=== PATIENT | female | born 1965 | race Caucasian/White ===

== ENCOUNTER → 2017-05-08 | Outpatient (CLI) | payer OTHER ==
[~2017-05-08] MED LIST: ALBU6.7H; ASPI-515; ATOR20TA; ESTR1TAB17; FLUO20CA19; FLUT16SP2; GABA300C; GLIP-33; METF10002; OMEP20CA9; POTA10CA
== END | disposition home or self-care (01) ==
LOC: RAD 11:45
PROVIDERS: ATTEND Internal Medicine
DX: M17.11 Unilateral primary osteoarthritis, right knee (principal); M24.661 Ankylosis, right knee

== ENCOUNTER 2017-05-10 15:13 | Emergency (ER) | payer OTHER ==
[~2017-05-10] VITALS: Ht 152.4 cm; Wt 67.3 kg
[2017-05-10] MEDS ORDERED: ONDANSETRON 2MG/ML, 2ML IVPush ONE (16:00)
[2017-05-10] MEDS ORDERED: SODIUM CHLORIDE FLUSH 10ML SYR IVF ONE (16:00)
[2017-05-10] MEDS ORDERED: SODIUM CHLORIDE 0.9% 1,000ML IVBOLUS ONE ×2 (16:00→17:00)
[2017-05-10 16:16] LABS: BLOOD UREA NITROGEN 13 mg/dL (7-18)
[2017-05-10 16:20] LABS: ASPARTATE AMINO TRANSFERASE 63 U/L (15-37)
[2017-05-10] MEDS ORDERED: ONDANSETRON 2MG/ML, 2ML ONE (17:01)
[2017-05-10 18:14] VITALS: BP 104/68
== END 2017-05-10 18:24 | disposition home or self-care (01) ==
LOC: ED 18:21
DX: E11.65 Type 2 diabetes mellitus with hyperglycemia (principal)
CPT/HCPCS: 36415; 80053; 81001; 82010; 82962; 85025; 87077; 87086; 87106; 87186; 93005; 96361; 96374; 99285; J2405; J7030

== ENCOUNTER → 2017-06-11 | Outpatient (CLI) | payer OTHER | END | disposition home or self-care (01) | LOC: CFH 08:38 | PROVIDERS: ATTEND Internal Medicine | DX: K76.0 Fatty (change of) liver, not elsewhere classified (principal); Z90.49 Acquired absence of other specified parts of digestive tract | CPT/HCPCS: 76700 ==

== ENCOUNTER 2017-07-20 05:33 | Emergency (ER) | payer OTHER ==
[~2017-07-20] VITALS: Ht 157.5 cm; Wt 69.4 kg
[2017-07-20] MEDS ORDERED: ASPIRIN 81 MG TABLET CHEW PO ONE (06:00)
[2017-07-20] MEDS ORDERED: ALBUTEROL/IPRATROPIUM 2.5MG/0.5MG, 3 ML NEB ONE (06:00)
[2017-07-20] MEDS ORDERED: ASPIRIN 81 MG TABLET CHEW ONE (06:20)
[2017-07-20] MEDS ORDERED: ALBUTEROL/IPRATROPIUM 2.5MG/0.5MG, 3 ML ONE (06:23)
[2017-07-20 06:40] LABS: HEMATOCRIT 44.1 % (34.6-47.8); HEMOGLOBIN 14.6 g/dL (11.7-16.4); WHITE BLOOD COUNT 5.2 x10^3/uL (3.4-10)
[2017-07-20 06:50] LABS: BLOOD UREA NITROGEN 14 mg/dL (7-18)
[2017-07-20 06:53] LABS: PATH.CAST-FLAG NOT PRESENT; SPERM-FLAG NOT PRESENT; SRC-FLAG NOT PRESENT; XTAL-FLAG NOT PRESENT; YLC-FLAG NOT PRESENT
[2017-07-20 06:56] LABS: ASPARTATE AMINO TRANSFERASE 35 U/L (15-37)
[2017-07-20 07:09] LABS: IS PT STATUS REG ER OR PRE ER? YES
[2017-07-20 07:58] VITALS: BP 104/71
== END 2017-07-20 08:00 | disposition home or self-care (01) ==
LOC: ED 05:45
DX: J44.1 Chronic obstructive pulmonary disease with (acute) exacerbation (principal); J01.00 Acute maxillary sinusitis, unspecified; Z87.891 Personal history of nicotine dependence
CPT/HCPCS: 36415; 71010; 80053; 81001; 84484; 85025; 93005; 94640; 99285; J7512; J7620

== ENCOUNTER 2017-08-05 15:49 | Emergency (ER) | payer OTHER ==
[~2017-08-05] VITALS: Ht 157.5 cm; Wt 68.5 kg
[2017-08-05 15:53] VITALS: BP 149/93
[2017-08-05] MEDS ORDERED: KETOROLAC 30 MG/1 ML IM ONE (16:30)
[2017-08-05] MEDS ORDERED: KETOROLAC 30 MG/1 ML ONE (16:45)
== END 2017-08-05 17:24 | disposition home or self-care (01) ==
LOC: ED 17:18
DX: S16.1XXA Strain of muscle, fascia and tendon at neck level, initial encounter (principal); J01.90 Acute sinusitis, unspecified; J44.9 Chronic obstructive pulmonary disease, unspecified; E11.65 Type 2 diabetes mellitus with hyperglycemia; Z88.8 Allergy status to other drugs, medicaments and biological substances; W19.XXXA Unspecified fall, initial encounter; Y93.89 Activity, other specified; Y92.89 Other specified places as the place of occurrence of the external cause; Y99.8 Other external cause status
CPT/HCPCS: 71101; 72050; 96372; 99284; J1885

== ENCOUNTER 2017-11-29 11:11 | Emergency (ER) | payer OTHER ==
[~2017-11-29] VITALS: Ht 157.5 cm; Wt 68.2 kg
[2017-11-29 11:53] LABS: BASOPHILS % (AUTO) 1 % (0-1); EOSINOPHILS # (AUTO) 0.01 x10^3/uL (0-0.4); EOSINOPHILS % (AUTO) 0 % (1-7); LYMPHOCYTES # (AUTO) 2.55 x10^3/uL (1-3.4); LYMPHOCYTES % (AUTO) 15 % (22-44); MD NO; MEAN CORPUSCULAR HEMOGLOBIN 27.4 pg (27.0-34.8); MEAN CORPUSCULAR HGB CONC 34.1 g/dL (32.4-35.8); MEAN CORPUSCULAR VOLUME 80.3 fL (80-100); MEAN PLATELET VOLUME 7.4 fL (7.4-10.4); MONOCYTES # (AUTO) 0.63 x10^3/uL (0.2-0.8); MONOCYTES % (AUTO) 4 % (2-9); NEUTROPHILS # (AUTO) 13.32 x10^3/uL (1.8-6.8); NEUTROPHILS % (AUTO) 80 % (42-75); PLATELET COUNT 366 x10^3/uL (130-400); RED BLOOD COUNT 6.16 x10^6/uL (3.82-5.3); RED CELL DISTRIBUTION WIDTH 14.1 % (9.6-15.2)
[2017-11-29] MEDS ORDERED: SODIUM CHLORIDE FLUSH 10ML SYR IVF ONE (12:00)
[2017-11-29 12:05] LABS: ALBUMIN 4.1 g/dL (3.4-5.0); ANION GAP 8 mmol/L (5-15); CALCIUM 9.7 mg/dL (8.5-10.1); CHLORIDE 98 mmol/L (98-107)
[2017-11-29] MEDS ORDERED: DULO20CA45 PO (12:05)
[2017-11-29] MEDS ORDERED: PREG50CA PO (12:05)
[2017-11-29 12:08] LABS: CREATININE 0.89 mg/dL (0.55-1.02)
[2017-11-29 12:09] LABS: RAPID INFLUENZA A Negative (Negative); RAPID INFLUENZA B Negative (Negative)
[2017-11-29 12:09] LABS: ALANINE AMINOTRANSFERASE 34 U/L (12-78); ALKALINE PHOSPHATASE 166 U/L (45-117); BILIRUBIN,TOTAL 1.4 mg/dL (0.2-1.0); TOTAL PROTEIN 8.6 g/dL (6.4-8.2)
[2017-11-29] MEDS ORDERED: SODIUM CHLORIDE 0.9% 1,000ML IVBOLUS ONE (13:30)
[2017-11-29 14:21] VITALS: BP 109/72
== END 2017-11-29 15:09 | disposition home or self-care (01) ==
LOC: ED 13:42
DX: J20.8 Acute bronchitis due to other specified organisms (principal); J98.01 Acute bronchospasm; K52.9 Noninfective gastroenteritis and colitis, unspecified; E86.0 Dehydration; E11.65 Type 2 diabetes mellitus with hyperglycemia; J44.0 Chronic obstructive pulmonary disease with (acute) lower respiratory infection
CPT/HCPCS: 36415; 71046; 80053; 85025; 87400; 93005; 96360; 99285; J7030; J7512

== ENCOUNTER → 2017-12-03 | Outpatient (CLI) | payer OTHER ==
[~2017-12-03] MED LIST changes: +DULO20CA45 PO; +FENTANYL PF 100 MCG/2ML ONE; +FLUMAZENIL 0.1 MG/1 ML, 5ML ONE; +INSU100I32 SQ; +INSU100V12 SQ; +IPRA4AER INH; +MIDAZOLAM 1 MG/ML, 5ML ONE; +NALOXONE 1 MG/ML, 2ML ONE; +PREG50CA PO; +TRAM50TA2 PO
== END | disposition home or self-care (01) ==
LOC: RAD 11:43
PROVIDERS: ATTEND Orthopaedic Surgery
DX: M75.122 Complete rotator cuff tear or rupture of left shoulder, not specified as traumatic (principal); Z98.890 Other specified postprocedural states
CPT/HCPCS: 73221; 99156; 99157; J2250; J3010; J2310

== ENCOUNTER 2017-12-04 06:37 | Emergency (ER) | payer OTHER ==
[~2017-12-04] VITALS: Ht 157.5 cm; Wt 71.0 kg
[~2017-12-04 06:37] MED LIST changes: -ALBU6.7H; +ALBU6.7H INH; -ASPI-515; +ASPI-515 PO; -ATOR20TA; +ATOR20TA PO; -FENTANYL PF 100 MCG/2ML ONE; -FLUMAZENIL 0.1 MG/1 ML, 5ML ONE; -INSU100I32 SQ; -INSU100V12 SQ; -IPRA4AER INH; -MIDAZOLAM 1 MG/ML, 5ML ONE; -NALOXONE 1 MG/ML, 2ML ONE; -TRAM50TA2 PO
[2017-12-04] MEDS ORDERED: SODIUM CHLORIDE 0.9% 1,000 ML IV ONE (06:56)
[2017-12-04] MEDS ORDERED: ALBUTEROL/IPRATROPIUM 2.5MG/0.5MG, 3 ML NPPB SCH (07:00)
[2017-12-04] MEDS ORDERED: SODIUM CHLORIDE FLUSH 10ML SYR IVF ONE (07:00)
[2017-12-04 07:39] LABS: BASOPHILS # (AUTO) 0.07 x10^3/uL (0-0.1); BASOPHILS % (AUTO) 1 % (0-1); EOSINOPHILS # (AUTO) 0.01 x10^3/uL (0-0.4); EOSINOPHILS % (AUTO) 0 % (1-7); LYMPHOCYTES # (AUTO) 3.01 x10^3/uL (1-3.4); LYMPHOCYTES % (AUTO) 23 % (22-44); MD NO; MEAN CORPUSCULAR HGB CONC 33.5 g/dL (32.4-35.8); MEAN CORPUSCULAR VOLUME 80.4 fL (80-100); MEAN PLATELET VOLUME 7.2 fL (7.4-10.4); MONOCYTES # (AUTO) 0.27 x10^3/uL (0.2-0.8); MONOCYTES % (AUTO) 2 % (2-9); NEUTROPHILS # (AUTO) 9.57 x10^3/uL (1.8-6.8); NEUTROPHILS % (AUTO) 74 % (42-75); PLATELET COUNT 347 x10^3/uL (130-400); RED BLOOD COUNT 6.07 x10^6/uL (3.82-5.3); RED CELL DISTRIBUTION WIDTH 13.9 % (9.6-15.2)
[2017-12-04 07:51] LABS: ALBUMIN 3.6 g/dL (3.4-5.0); ANION GAP 12 mmol/L (5-15); CALCIUM 10.3 mg/dL (8.5-10.1); CHLORIDE 100 mmol/L (98-107); CREATININE 0.65 mg/dL (0.55-1.02)
[2017-12-04] MEDS ORDERED: SODIUM CHLORIDE 0.9% 1,000ML IVBOLUS ONE ×2 (08:00→09:30)
[2017-12-04] MEDS ORDERED: CEFTRIAXONE PMX 1GM/50ML 50 ML IV ONE (08:00)
[2017-12-04 11:01] VITALS: BP 110/77
[2017-12-04] MEDS ORDERED: TRAM50TA2 PO (15:39)
[2017-12-04] MEDS ORDERED: INSU100V12 SQ (15:41)
[2017-12-04] MEDS ORDERED: INSU100I32 SQ (17:23)
[2017-12-04] MEDS ORDERED: IPRA4AER INH (17:23)
[2017-12-06] MEDS ORDERED: IPRA3AMP NPPB (11:32)
[2017-12-06] MEDS ORDERED: GABA-826 PO (11:32)
[2017-12-06] MEDS ORDERED: CEFD300C37 PO (11:32)
[2017-12-06] MEDS ORDERED: FLUT1BLS INH (11:32)
[2017-12-06] MEDS ORDERED: DOXY100T10 PO (11:32)
[2017-12-06] MEDS ORDERED: ACID1GRA3 PO (11:32)
== END 2017-12-04 11:06 | disposition home or self-care (01) ==
LOC: ED 07:05
DX: J44.0 Chronic obstructive pulmonary disease with (acute) lower respiratory infection (principal); J15.9 Unspecified bacterial pneumonia; E11.9 Type 2 diabetes mellitus without complications; Z87.891 Personal history of nicotine dependence; Z99.81 Dependence on supplemental oxygen
CPT/HCPCS: 36415; 71045; 80048; 82040; 83605; 83880; 84145; 85025; 87040; 93005; 96361; 96365; 99285; J0696; J7030; J7512; J7620

== ENCOUNTER → 2018-02-21 | Outpatient (CLI) | payer OTHER ==
[~2018-02-21] MED LIST changes: +ACID1GRA3 PO; +ALBU6.7H PO; +ATOR-2 PO; +CEFD300C37 PO; +DOXY100T10 PO; +FLUT1BLS INH; +FLUT1BLS PO; +GABA-826 PO; +GABA300C10 PO; +INSU100I32 SQ; +INSU100V12 SQ; +IPRA3AMP NPPB; +IPRA4AER INH; -METF10002; +METF10002 PO; -OMEP20CA9; +OMEP20CA9 PO; +TRAM50TA2 PO
[2018-02-21 09:22] LABS: ALANINE AMINOTRANSFERASE 40 U/L (12-78); ALBUMIN 3.7 g/dL (3.4-5.0); ANION GAP 9 mmol/L (5-15); CALCIUM 9.1 mg/dL (8.5-10.1); CHLORIDE 102 mmol/L (98-107)
[2018-02-21 09:25] LABS: ALKALINE PHOSPHATASE 151 U/L (45-117); BILIRUBIN,TOTAL 0.9 mg/dL (0.2-1.0); CREATININE 0.61 mg/dL (0.55-1.02); TOTAL PROTEIN 8.2 g/dL (6.4-8.2)
== END ==
LOC: STAR 08:02
PROVIDERS: ATTEND Orthopaedic Surgery
DX: M75.42 Impingement syndrome of left shoulder (principal)
CPT/HCPCS: 36415; 80053; 93005

== ENCOUNTER 2018-05-19 09:02 | Emergency (ER) | payer OTHER ==
[~2018-05-19] VITALS: Ht 157.5 cm; Wt 75.0 kg
[2018-05-19] MEDS ORDERED: METOCLOPRAMIDE 5 MG/ML, 2ML IVPush ONE (09:30)
[2018-05-19] MEDS ORDERED: SODIUM CHLORIDE FLUSH 10ML SYR IVF ONE (09:30)
[2018-05-19] MEDS ORDERED: METOCLOPRAMIDE 5 MG/ML, 2ML ONE (09:51)
[2018-05-19 09:52] LABS: BASOPHILS # (AUTO) 0.03 x10^3/uL (0-0.1); BASOPHILS % (AUTO) 1 % (0-1); EOSINOPHILS # (AUTO) 0.18 x10^3/uL (0-0.4); EOSINOPHILS % (AUTO) 3 % (1-7); LYMPHOCYTES # (AUTO) 2.28 x10^3/uL (1-3.4); LYMPHOCYTES % (AUTO) 33 % (22-44); MD NO; MEAN CORPUSCULAR HEMOGLOBIN 25.2 pg (27.0-34.8); MEAN CORPUSCULAR HGB CONC 33.3 g/dL (32.4-35.8); MEAN CORPUSCULAR VOLUME 75.6 fL (80-100); MONOCYTES # (AUTO) 0.24 x10^3/uL (0.2-0.8); MONOCYTES % (AUTO) 4 % (2-9); NEUTROPHILS # (AUTO) 4.14 x10^3/uL (1.8-6.8); NEUTROPHILS % (AUTO) 60 % (42-75); PLATELET COUNT 269 x10^3/uL (130-400); RED BLOOD COUNT 5.74 x10^6/uL (3.82-5.3); RED CELL DISTRIBUTION WIDTH 14.9 % (9.6-15.2)
[2018-05-19 10:02] LABS: ALANINE AMINOTRANSFERASE 42 U/L (12-78); ALBUMIN 3.5 g/dL (3.4-5.0); ANION GAP 7 mmol/L (5-15); CHLORIDE 103 mmol/L (98-107); CREATININE 0.69 mg/dL (0.55-1.02)
[2018-05-19 10:04] LABS: ALKALINE PHOSPHATASE 148 U/L (45-117); BILIRUBIN,TOTAL 0.6 mg/dL (0.2-1.0); TOTAL PROTEIN 7.5 g/dL (6.4-8.2)
[2018-05-19 10:27] LABS: CULTURE INDICATED? YES; MICROSCOPIC INDICATED
[2018-05-19] MEDS ORDERED: OMNIPAQUE 350 MG/ML, 100ML BOTTLE ONE (10:40)
[2018-05-19 11:02] VITALS: BP 105/75
== END 2018-05-19 11:18 | disposition home or self-care (01) ==
LOC: ED 10:51
DX: N30.90 Cystitis, unspecified without hematuria (principal); R19.7 Diarrhea, unspecified; J44.9 Chronic obstructive pulmonary disease, unspecified; E11.65 Type 2 diabetes mellitus with hyperglycemia; Z90.49 Acquired absence of other specified parts of digestive tract; Z87.891 Personal history of nicotine dependence
CPT/HCPCS: 36415; 74177; 80053; 81001; 83690; 85025; 87077; 87086; 87147; 93005; 96374; 99285; J2765; Q9967; 87186

== ENCOUNTER 2018-06-06 12:25 | Emergency (ER) | payer OTHER ==
[~2018-06-06] VITALS: Ht 157.5 cm; Wt 76.0 kg
[2018-06-06] MEDS ORDERED: KETOROLAC 30 MG/1 ML ONE (13:09)
[2018-06-06] MEDS ORDERED: PHENAZOPYRIDINE 200 MG TABLET ONE (13:09)
[2018-06-06 13:25] LABS: BASOPHILS # (AUTO) 0.11 x10^3/uL (0-0.1); BASOPHILS % (AUTO) 1 % (0-1); EOSINOPHILS # (AUTO) 0.05 x10^3/uL (0-0.4); EOSINOPHILS % (AUTO) 0 % (1-7); LYMPHOCYTES # (AUTO) 3.18 x10^3/uL (1-3.4); LYMPHOCYTES % (AUTO) 29 % (22-44); MD NO; MEAN CORPUSCULAR HEMOGLOBIN 24.5 pg (27.0-34.8); MEAN CORPUSCULAR HGB CONC 33.4 g/dL (32.4-35.8); MEAN CORPUSCULAR VOLUME 73.6 fL (80-100); MEAN PLATELET VOLUME 8.1 fL (7.4-10.4); MONOCYTES % (AUTO) 3 % (2-9); NEUTROPHILS # (AUTO) 7.35 x10^3/uL (1.8-6.8); NEUTROPHILS % (AUTO) 67 % (42-75); PLATELET COUNT 282 x10^3/uL (130-400); RED BLOOD COUNT 6.31 x10^6/uL (3.82-5.3); RED CELL DISTRIBUTION WIDTH 15.2 % (9.6-15.2)
[2018-06-06] MEDS ORDERED: SODIUM CHLORIDE 0.9% 1,000ML IV ONE (13:30)
[2018-06-06] MEDS ORDERED: PHENAZOPYRIDINE 200 MG TABLET PO ONE (13:30)
[2018-06-06] MEDS ORDERED: KETOROLAC 30 MG/1 ML IVPush ONE (13:30)
[2018-06-06 13:31] LABS: ANION GAP 10 mmol/L (5-15); CALCIUM 9.1 mg/dL (8.5-10.1); CHLORIDE 99 mmol/L (98-107); CREATININE 0.78 mg/dL (0.55-1.02)
[2018-06-06 13:51] LABS: CULTURE INDICATED? YES; MICROSCOPIC INDICATED
[2018-06-06] MEDS ORDERED: CEFTRIAXONE 1,000 MG in SODIUM CHLORIDE 0.9% 50 ML IVPB ONE (14:30)
[2018-06-06] MEDS ORDERED: CEFTRIAXONE PMX 1GM/50ML 50 ML ONE (14:37)
[2018-06-06 15:05] VITALS: BP 134/70
== END 2018-06-06 15:08 | disposition home or self-care (01) ==
LOC: ED 14:58
DX: N10 Acute pyelonephritis (principal); I10 Essential (primary) hypertension; J44.9 Chronic obstructive pulmonary disease, unspecified; E11.65 Type 2 diabetes mellitus with hyperglycemia; Z87.891 Personal history of nicotine dependence; Z90.49 Acquired absence of other specified parts of digestive tract; Z90.710 Acquired absence of both cervix and uterus
CPT/HCPCS: 36415; 76770; 80048; 81001; 82040; 85025; 87077; 87086; 96365; 96375; 99285; J0696; J1885; J7030; 87186

== ENCOUNTER → 2018-07-14 | Outpatient (CLI) | payer OTHER ==
[~2018-07-14] MED LIST changes: +FENTANYL PF 100 MCG/2ML ONE; +FLUMAZENIL 0.1 MG/1 ML, 5ML ONE; +GADOBUTROL 10 MMOL/10 ML VIAL ONE; -IPRA3AMP NPPB; +IPRA3AMP30 NPPB; +MIDAZOLAM 1 MG/ML, 5ML ONE; +NALOXONE 1 MG/ML, 2ML ONE
== END | disposition home or self-care (01) ==
LOC: RAD 09:21
PROVIDERS: ATTEND Internal Medicine Gastroenterology
DX: R10.31 Right lower quadrant pain (principal); G89.29 Other chronic pain; J44.9 Chronic obstructive pulmonary disease, unspecified; E11.9 Type 2 diabetes mellitus without complications; Z87.891 Personal history of nicotine dependence; Z98.890 Other specified postprocedural states; Z79.82 Long term (current) use of aspirin; Z79.899 Other long term (current) drug therapy; Z79.4 Long term (current) use of insulin
CPT/HCPCS: 74183; 99156; 99157; A9585; J2250; J3010; J2310

== ENCOUNTER 2018-09-02 10:04 | Emergency (ER) | payer OTHER ==
[~2018-09-02] VITALS: Ht 157.5 cm; Wt 75.5 kg
[~2018-09-02 10:04] MED LIST changes: -FENTANYL PF 100 MCG/2ML ONE; -FLUMAZENIL 0.1 MG/1 ML, 5ML ONE; -GADOBUTROL 10 MMOL/10 ML VIAL ONE; -MIDAZOLAM 1 MG/ML, 5ML ONE; -NALOXONE 1 MG/ML, 2ML ONE
[2018-09-02 10:26] VITALS: BP 110/79
== END 2018-09-02 12:42 | disposition home or self-care (01) ==
LOC: ED 12:38
DX: L03.031 Cellulitis of right toe (principal); E11.9 Type 2 diabetes mellitus without complications; J44.9 Chronic obstructive pulmonary disease, unspecified; Z90.49 Acquired absence of other specified parts of digestive tract; Z90.710 Acquired absence of both cervix and uterus; Z79.4 Long term (current) use of insulin
CPT/HCPCS: 99284

== ENCOUNTER → 2018-09-11 | Outpatient (CLI) | payer OTHER | END | disposition home or self-care (01) | LOC: CVU 06:36 | PROVIDERS: ATTEND Internal Medicine | DX: M79.671 Pain in right foot (principal); E11.9 Type 2 diabetes mellitus without complications; E78.5 Hyperlipidemia, unspecified; J44.9 Chronic obstructive pulmonary disease, unspecified; K21.9 Gastro-esophageal reflux disease without esophagitis; K90.0 Celiac disease | CPT/HCPCS: 93922; 93925 ==

== ENCOUNTER → 2018-09-22 | Outpatient (CLI) | payer OTHER | END | disposition home or self-care (01) | LOC: CFH 10:08 | PROVIDERS: ATTEND Student in an Organized Health Care Education/Training Program | DX: Z12.31 Encounter for screening mammogram for malignant neoplasm of breast (principal) | CPT/HCPCS: 77063; 77067 ==

== ENCOUNTER 2018-10-24 12:27 | Day surgery (SDC) | payer OTHER ==
[~2018-10-24] VITALS: Ht 157.5 cm; Wt 76.1 kg
[2018-10-24] MEDS ORDERED: LACTATED RINGERS 1,000 ML IV SCH (13:13)
[2018-10-24 13:40] VITALS: BP 118/81
[2018-10-24 14:32] LABS: ALANINE AMINOTRANSFERASE 58 U/L (12-78); ALBUMIN 3.8 g/dL (3.4-5.0); ANION GAP 8 mmol/L (5-15); CALCIUM 9.1 mg/dL (8.5-10.1); CHLORIDE 106 mmol/L (98-107)
[2018-10-24 14:34] LABS: ALKALINE PHOSPHATASE 157 U/L (45-117); BILIRUBIN,TOTAL 0.6 mg/dL (0.2-1.0); CREATININE 0.52 mg/dL (0.55-1.02); TOTAL PROTEIN 7.8 g/dL (6.4-8.2)
[2018-10-24] MEDS ORDERED: LORazepam 2 MG/ML, 1ML IVPush PRN (16:00)
[2018-10-24] MEDS ORDERED: ONDANSETRON ODT 8 MG PO PRN (16:00)
[2018-10-24] MEDS ORDERED: hydrALAzine 20 MG/ML, 1ML IV PRN (16:00)
[2018-10-24] MEDS ORDERED: ONDANSETRON 2MG/ML, 2ML IV PRN (16:00)
[2018-10-24] MEDS ORDERED: LABETALOL 5MG/ML, 20ML IV PRN (16:00)
[2018-10-24] MEDS ORDERED: OXYcodone 5 MG/5 ML ORAL.SOL UDC PO PRN (16:00)
[2018-10-24] MEDS ORDERED: FENTANYL PF 100 MCG/2ML IV PRN (16:00)
[2018-10-24] MEDS ORDERED: ALBUTEROL/IPRATROPIUM 2.5MG/0.5MG, 3 ML NPPB PRN (16:00)
[2018-10-24] MEDS ORDERED: ACETAMINOPHEN 325 MG TABLET PO PRN (16:00)
== END 2018-10-24 16:40 | disposition home or self-care (01) ==
LOC: OUT 12:27 → EDSTATUS 14:30 → OUT 16:40
PROVIDERS: ATTEND Orthopaedic Surgery
DX: M54.12 Radiculopathy, cervical region (principal); J44.9 Chronic obstructive pulmonary disease, unspecified; F41.9 Anxiety disorder, unspecified; Z99.81 Dependence on supplemental oxygen; Z88.6 Allergy status to analgesic agent; Z88.8 Allergy status to other drugs, medicaments and biological substances
CPT/HCPCS: 36415; 72141; 80053; 82962; J7120

== ENCOUNTER 2018-10-31 11:04 | Day surgery (SDC) | payer OTHER ==
[2018-10-27 11:26] VITALS: BP 126/86
[~2018-10-31] VITALS: Ht 157.5 cm; Wt 75.7 kg
[~2018-10-31 11:04] MED LIST changes: +FLUO20CA19 PO
[2018-10-31] MEDS ORDERED: BUPIVACAINE/PF 0.5% ONE (11:20)
[2018-10-31] MEDS ORDERED: BACITRACIN 50,000 UNIT ONE ×2 (11:21)
[2018-10-31] MEDS ORDERED: LACTATED RINGERS 1,000 ML IV SCH (11:39)
[2018-10-31] MEDS ORDERED: ROPI0.5T2 PO (11:44)
[2018-10-31] MEDS ORDERED: NITR100C6 PO (11:44)
[2018-10-31] MEDS ORDERED: CHOL100011 PO (11:44)
[2018-10-31] MEDS ORDERED: ACETAMINOPHEN 500 MG TABLET PO ONE (12:00)
[2018-10-31] MEDS ORDERED: ONDANSETRON ODT 8 MG PO ONE (12:00)
[2018-10-31] MEDS ORDERED: GABAPENTIN 300 MG CAPSULE PO ONE (12:00)
[2018-10-31] MEDS ORDERED: LIDOCAINE-MPF 2% ,5ML ONE (12:31)
[2018-10-31] MEDS ORDERED: FENTANYL PF 100 MCG/2ML ONE (12:32)
[2018-10-31] MEDS ORDERED: PROPOFOL 10 MG/ML, 20ML ONE (12:59)
[2018-10-31] MEDS ORDERED: DEXAMETHASONE 4 MG/ML, 1ML ONE (12:59)
[2018-10-31] MEDS ORDERED: CEFAZOLIN 1,000 MG ONE (12:59)
[2018-10-31] MEDS ORDERED: ONDANSETRON 2MG/ML, 2ML IV PRN (13:00)
[2018-10-31] MEDS ORDERED: MIDAZOLAM 1 MG/ML, 2ML IV PRN (13:00)
[2018-10-31] MEDS ORDERED: ALBUTEROL/IPRATROPIUM 2.5MG/0.5MG, 3 ML NPPB PRN (13:00)
[2018-10-31] MEDS ORDERED: hydrALAzine 20 MG/ML, 1ML IV PRN (13:00)
[2018-10-31] MEDS ORDERED: MEPERIDINE/PF 25MG/0.5ML IVPush PRN (13:00)
[2018-10-31] MEDS ORDERED: LABETALOL 5MG/ML, 20ML IV PRN (13:00)
[2018-10-31] MEDS ORDERED: FENTANYL PF 100 MCG/2ML IV PRN (13:00)
[2018-10-31] MEDS ORDERED: HYDROmorphone 2 MG/ML, 1ML IVPush PRN (13:00)
[2018-10-31] MEDS ORDERED: OXYcodone 5 MG/5 ML ORAL.SOL UDC PO PRN (13:00)
[2018-10-31] MEDS ORDERED: OXYcodone 5 MG/5 ML ORAL.SOL UDC ONE (13:31)
[2018-10-31] MEDS ORDERED: ALBUTEROL/IPRATROPIUM 2.5MG/0.5MG, 3 ML ONE (13:31)
== END 2018-10-31 15:35 | disposition home or self-care (01) ==
LOC: OUT 11:04
PROVIDERS: ATTEND Orthopaedic Surgery
DX: G56.01 Carpal tunnel syndrome, right upper limb (principal); M65.841 Other synovitis and tenosynovitis, right hand; E11.9 Type 2 diabetes mellitus without complications; K21.9 Gastro-esophageal reflux disease without esophagitis; Z79.899 Other long term (current) drug therapy; Z88.8 Allergy status to other drugs, medicaments and biological substances; Z91.018 Allergy to other foods; Z79.82 Long term (current) use of aspirin; Z98.890 Other specified postprocedural states; Z90.49 Acquired absence of other specified parts of digestive tract; Z90.710 Acquired absence of both cervix and uterus; Z98.51 Tubal ligation status; Z87.39 Personal history of other diseases of the musculoskeletal system and connective tissue
CPT/HCPCS: 25115; 64721; 82962; C1763; J0690; J1100; J2704; J3010; J3490; J7120; J7620; Q0162

== ENCOUNTER 2018-12-06 14:03 | Emergency (ER) | payer OTHER ==
[~2018-12-06] VITALS: Ht 157.5 cm; Wt 75.0 kg
[~2018-12-06 14:03] MED LIST changes: +CHOL100011 PO; +NITR100C6 PO; +ROPI0.5T2 PO
[2018-12-06 14:07] VITALS: BP 125/87
[2018-12-06] MEDS ORDERED: ALBUTEROL/IPRATROPIUM 2.5MG/0.5MG, 3 ML ONE (14:27)
[2018-12-06] MEDS ORDERED: ALBUTEROL/IPRATROPIUM 2.5MG/0.5MG, 3 ML NPPB ONE (14:30)
--- NOTE | 2018-12-06 14:30 | NUR ---
PT TAKEN TO RADIOLOGY
[2018-12-06] MEDS ORDERED: KETOROLAC 30 MG/1 ML ONE (14:51)
[2018-12-06] MEDS ORDERED: ACETAMINOPHEN 325 MG TABLET ONE (14:51)
[2018-12-06 15:00] LABS: BASOPHILS # (AUTO) 0.02 x10^3/uL (0-0.1); BASOPHILS % (AUTO) 0 % (0-1); EOSINOPHILS # (AUTO) 0.11 x10^3/uL (0-0.4); EOSINOPHILS % (AUTO) 2 % (1-7); LYMPHOCYTES % (AUTO) 39 % (22-44); MD NO; MEAN CORPUSCULAR HGB CONC 32.8 g/dL (32.4-35.8); MEAN CORPUSCULAR VOLUME 76.2 fL (80-100); MEAN PLATELET VOLUME 8.4 fL (7.4-10.4); MONOCYTES # (AUTO) 0.17 x10^3/uL (0.2-0.8); MONOCYTES % (AUTO) 3 % (2-9); NEUTROPHILS % (AUTO) 56 % (42-75); PLATELET COUNT 240 x10^3/uL (130-400); RED BLOOD COUNT 5.71 x10^6/uL (3.82-5.3); RED CELL DISTRIBUTION WIDTH 14.8 % (9.6-15.2)
[2018-12-06] MEDS ORDERED: KETOROLAC 30 MG/1 ML IM ONE (15:00)
[2018-12-06] MEDS ORDERED: ACETAMINOPHEN 325 MG TABLET PO ONE (15:00)
[2018-12-06 15:09] LABS: ALBUMIN 3.7 g/dL (3.4-5.0); ANION GAP 7 mmol/L (5-15); CALCIUM 8.9 mg/dL (8.5-10.1); CHLORIDE 106 mmol/L (98-107); CREATININE 0.57 mg/dL (0.55-1.02)
[2018-12-06 15:12] LABS: TROPONIN I < 0.015 ng/mL (0.000-0.045)
--- NOTE | 2018-12-06 15:40 | NUR ---
Kelley alcaraz in [facility] - 12/06/18 at 1542 by [facility] TIDAL CO2 AT 28 RESPS 21 O2 AT 10 LPM VIA MASK
== END 2018-12-06 16:01 | disposition home or self-care (01) ==
LOC: ED 14:32
DX: J18.0 Bronchopneumonia, unspecified organism (principal); E11.9 Type 2 diabetes mellitus without complications; J44.9 Chronic obstructive pulmonary disease, unspecified
CPT/HCPCS: 36415; 71046; 80048; 82040; 84484; 85025; 93005; 94640; 96372; 99284; J1885; J7512; J7620

== ENCOUNTER 2019-02-04 09:36 | Day surgery (SDC) | payer MEDICARE, OTHER ==
[~2019-02-04] VITALS: Ht 157.5 cm; Wt 72.5 kg
[~2019-02-04 09:36] MED LIST changes: +ALBUTEROL INH; +BUPIVACAINE/PF-EPI 0.5% 1:200K ONE; +IPRATRO INH; +NEOSPORIN OINT, 15GM ONE
[2019-02-04] MEDS ORDERED: LACTATED RINGERS 1,000 ML IV SCH (10:07)
[2019-02-04 10:11] VITALS: BP 109/82
[2019-02-04] MEDS ORDERED: MIDAZOLAM 1 MG/ML, 2ML ONE (11:24)
[2019-02-04] MEDS ORDERED: FENTANYL PF 100 MCG/2ML ONE (11:24)
[2019-02-04] MEDS ORDERED: SUCCINYLCHOLINE 20 MG/ML, 10ML ONE (11:25)
[2019-02-04] MEDS ORDERED: DEXAMETHASONE 4 MG/ML, 1ML ONE (11:25)
[2019-02-04] MEDS ORDERED: ONDANSETRON 2MG/ML, 2ML ONE (11:25)
[2019-02-04] MEDS ORDERED: PROPOFOL 10 MG/ML, 20ML ONE (11:25)
[2019-02-04] MEDS ORDERED: CEFAZOLIN 1,000 MG ONE (11:25)
[2019-02-04] MEDS ORDERED: ACETAMINOPHEN 325 MG TABLET PO PRN (12:00)
[2019-02-04] MEDS ORDERED: METOCLOPRAMIDE 5 MG/ML, 2ML IV PRN (12:00)
[2019-02-04] MEDS ORDERED: FENTANYL PF 100 MCG/2ML IV PRN (12:00)
[2019-02-04] MEDS ORDERED: LORazepam 2 MG/ML, 1ML IVPush PRN (12:00)
[2019-02-04] MEDS ORDERED: HYDROcodone/APAP 7.5-325MG/15ML UDC ONE (12:11)
[2019-02-04] MEDS ORDERED: HYDROmorphone 1 MG/ML, 1ML ONE (12:11)
[2019-02-04] MEDS: HYDROmorphone 2 MG/ML, 1ML IVPush PRN ×2 (12:15→12:39)
[2019-02-04] MEDS ORDERED: HYDROcodone/APAP 7.5-325MG/15ML UDC PO PRN (12:30)
[2019-02-04] MEDS ORDERED: HYDROcodone/APAP 5/325 TABLET PO PRN (12:30)
[2019-02-04] MEDS ORDERED: ONDANSETRON 2MG/ML, 2ML IVPush PRN (12:30)
== END 2019-02-04 14:10 | disposition home or self-care (01) ==
LOC: OUT 09:36
PROVIDERS: ATTEND Orthopaedic Surgery Adult Reconstructive Orthopaedic Surgery
DX: T85.848A Pain due to other internal prosthetic devices, implants and grafts, initial encounter (principal); J44.9 Chronic obstructive pulmonary disease, unspecified; G47.33 Obstructive sleep apnea (adult) (pediatric); E11.9 Type 2 diabetes mellitus without complications; I10 Essential (primary) hypertension; K21.9 Gastro-esophageal reflux disease without esophagitis; E78.5 Hyperlipidemia, unspecified; Y83.8 Other surgical procedures as the cause of abnormal reaction of the patient, or of later complication, without mention of misadventure at the time of the procedure; Y92.89 Other specified places as the place of occurrence of the external cause; Z88.8 Allergy status to other drugs, medicaments and biological substances; Z98.890 Other specified postprocedural states; Z91.018 Allergy to other foods; Z90.49 Acquired absence of other specified parts of digestive tract; Z90.710 Acquired absence of both cervix and uterus; Z98.51 Tubal ligation status; Z79.82 Long term (current) use of aspirin; Z79.84 Long term (current) use of oral hypoglycemic drugs
CPT/HCPCS: 20680; 82962; J0330; J0690; J1100; J1170; J2250; J2405; J2704; J3010

== ENCOUNTER 2019-04-23 08:05 | Outpatient (CLI) | payer MEDICARE, OTHER ==
[~2019-04-23 08:05] MED LIST changes: -ALBU6.7H INH; -ALBU6.7H PO; +ALBU6.7H8 INH; +ALBU6.7H8 PO; -BUPIVACAINE/PF-EPI 0.5% 1:200K ONE; -NEOSPORIN OINT, 15GM ONE
[2019-04-23] MEDS ORDERED: MIDAZOLAM 1 MG/ML, 5ML ONE (08:36)
[2019-04-23] MEDS ORDERED: FENTANYL PF 100 MCG/2ML ONE (08:36)
[2019-04-23] MEDS ORDERED: FLUMAZENIL 0.1 MG/1 ML, 5ML ONE (08:37)
[2019-04-23] MEDS ORDERED: NALOXONE 1 MG/ML, 2ML ONE (08:37)
== END 2019-04-23 23:59 | disposition home or self-care (01) ==
LOC: RAD 08:05
PROVIDERS: ATTEND Physical Medicine & Rehabilitation
DX: M76.01 Gluteal tendinitis, right hip (principal); J44.9 Chronic obstructive pulmonary disease, unspecified; E11.9 Type 2 diabetes mellitus without complications; Z88.8 Allergy status to other drugs, medicaments and biological substances; Z79.891 Long term (current) use of opiate analgesic; Z79.899 Other long term (current) drug therapy
CPT/HCPCS: 73721; 99156; 99157; J2250; J3010; J2310

== ENCOUNTER 2019-05-18 13:11 | Emergency (ER) | payer MEDICARE ==
[~2019-05-18] VITALS: Ht 157.5 cm; Wt 74.1 kg
[~2019-05-18 13:11] MED LIST changes: +ALBU6.7H INH; +ALBU6.7H PO; -ALBU6.7H8 INH; -ALBU6.7H8 PO
[2019-05-18 13:20] VITALS: BP 134/90
[2019-05-18] MEDS ORDERED: LIDOCAINE-MPF 1%, 2ML ONE (13:36)
[2019-05-18] MEDS ORDERED: LIDOCAINE-MPF 1%, 5ML INFIL ONE (14:00)
== END 2019-05-18 14:54 | disposition home or self-care (01) ==
LOC: ED 14:48
DX: L03.031 Cellulitis of right toe (principal); J44.9 Chronic obstructive pulmonary disease, unspecified; E11.9 Type 2 diabetes mellitus without complications; Z90.49 Acquired absence of other specified parts of digestive tract; Z87.891 Personal history of nicotine dependence; Z90.710 Acquired absence of both cervix and uterus
CPT/HCPCS: 99283

== ENCOUNTER 2019-06-19 16:36 | Emergency (ER) | payer MEDICARE, OTHER ==
[~2019-06-19] VITALS: Ht 157.5 cm; Wt 72.5 kg
[~2019-06-19 16:36] MED LIST changes: -ALBU6.7H INH; -ALBU6.7H PO; +ALBU6.7H8 INH; +ALBU6.7H8 PO
--- NOTE | 2019-06-19 16:50 | NUR ---
PT BIB EMS, STATES SHE HAS BEEN THROWING UP WITH STOMACH PAIN AND DIARRHEA SINCE WAKING UP AT 8 AM TODAY. SHE HAS FELT DIZZY AND "REALLY SICK" TODAY. STATES THAT FAMILY HAS BEEN SICK. PER EMS HYPOTENSION UPON ARRIVAL TO SCENE. EMS STARTED A 20G IV IN THE RIGHT FOOT AND GAVE 1 LITER BOLUS OF NS. PT ALSO RECIEVED ZOFRAN AND FENTANYL EN ROUTE TO HOSPITAL. PT HOOKED TO CONTIOUS BP AND PULSE OX MONITORING. CALL LIGHT WITHIN REACH. ALL QUESTIONS ANSWERED AT THIS TIME.
[2019-06-19] MEDS ORDERED: DICYCLOMINE 10 MG/ML, 2ML IM ONE (17:00)
[2019-06-19] MEDS ORDERED: DICYCLOMINE 10 MG/ML, 2ML ONE (17:06)
[2019-06-19 17:48] LABS: ALANINE AMINOTRANSFERASE 107 U/L (12-78); ALBUMIN 3.8 g/dL (3.4-5.0); ANION GAP 9 mmol/L (5-15); CALCIUM 8.6 mg/dL (8.5-10.1); CHLORIDE 107 mmol/L (98-107); CREATININE 0.62 mg/dL (0.55-1.02)
--- NOTE | 2019-06-19 17:50 | NUR ---
URINE COLLECTED AND SENT TO LAB.
[2019-06-19 17:51] LABS: ALKALINE PHOSPHATASE 190 U/L (45-117); BILIRUBIN,TOTAL 1.1 mg/dL (0.2-1.0); TOTAL PROTEIN 8.2 g/dL (6.4-8.2)
[2019-06-19] MEDS ORDERED: ONDANSETRON 2MG/ML, 2ML IVPush ONE (18:00)
[2019-06-19] MEDS ORDERED: ONDANSETRON 2MG/ML, 2ML ONE (18:05)
[2019-06-19 18:07] LABS: MICROSCOPIC INDICATED
[2019-06-19 18:08] LABS: CULTURE INDICATED? YES
[2019-06-19 18:12] LABS: BASOPHILS # (AUTO) 0.02 x10^3/uL (0-0.1); BASOPHILS % (AUTO) 0 % (0-1); EOSINOPHILS # (AUTO) 0.03 x10^3/uL (0-0.4); EOSINOPHILS % (AUTO) 0 % (1-7); LYMPHOCYTES # (AUTO) 1.21 x10^3/uL (1-3.4); LYMPHOCYTES % (AUTO) 15 % (22-44); MD NO; MEAN CORPUSCULAR HEMOGLOBIN 26.5 pg (27.0-34.8); MEAN CORPUSCULAR VOLUME 80.4 fL (80-100); MEAN PLATELET VOLUME 8.4 fL (7.4-10.4); MONOCYTES # (AUTO) 0.14 x10^3/uL (0.2-0.8); MONOCYTES % (AUTO) 2 % (2-9); NEUTROPHILS # (AUTO) 6.93 x10^3/uL (1.8-6.8); NEUTROPHILS % (AUTO) 83 % (42-75); PLATELET COUNT 157 x10^3/uL (130-400); RED BLOOD COUNT 6.36 x10^6/uL (3.82-5.3)
[2019-06-19] MEDS ORDERED: ALBU0.63 NEB (18:15)
--- NOTE | 2019-06-19 18:15 | NUR ---
PATIENT C/O PERSISTANT NAUSEA. DR. CONTRERAS NOTIFIED. ZOFRAN IV ORDERED AND GIVEN. WILL CONTINUE TO MONITOR.
[2019-06-19] MEDS ORDERED: PLEASE ENTER HEIGHT AND WEIGHT MC SCH (18:30)
--- NOTE | 2019-06-19 18:49 | NUR ---
RECEIVED REPORT FROM JOB YUEN AND ASSUMED PT CARE.
[2019-06-19 18:59] VITALS: BP 93/61
--- NOTE | 2019-06-19 18:59 | NUR ---
PT STATES UNABLE TO DRINK SPRITE, PROVIDED W/ ICE CHIPS PER REQUEST. PENDING UA.
== END 2019-06-19 19:32 | disposition home or self-care (01) ==
LOC: ED 17:08
DX: R10.84 Generalized abdominal pain (principal); R11.2 Nausea with vomiting, unspecified; R19.7 Diarrhea, unspecified; J44.9 Chronic obstructive pulmonary disease, unspecified; E11.65 Type 2 diabetes mellitus with hyperglycemia; Z90.49 Acquired absence of other specified parts of digestive tract; Z90.710 Acquired absence of both cervix and uterus; Z87.891 Personal history of nicotine dependence
CPT/HCPCS: 36415; 80053; 81001; 83690; 85025; 87077; 87086; 93005; 96372; 96374; 99284; J0500; J2405; 87186

== ENCOUNTER 2019-07-30 09:44 | Emergency (ER) | payer MEDICARE, OTHER ==
[~2019-07-30] VITALS: Ht 157.5 cm; Wt 72.0 kg
[~2019-07-30 09:44] MED LIST changes: +ALBU0.63 NEB
--- NOTE | 2019-07-30 10:18 | NUR ---
FIRST CONTACT WITH PT. PT STATES "I CAN'T BREATHE HARDLY. IT'S BEEN A FEW WEEKS. I WEAR OXYGEN AT NIGHT. MY DR TOLD ME TO COME TO ER UNTIL OCTOBER WHEN I CAN GET INTO A LUNG DR." PT'S AOX4. RESPS EVEN AND UNLABORED. ALL MONITRS IN PLACE. CALL LIGHT WITHIN REACH.
--- NOTE | 2019-07-30 10:19 | NUR ---
PT MEDICATED PER EMAR. PT TOLERATED WELL.
[2019-07-30 10:36] LABS: FIO2 ROOM AIR %
[2019-07-30 10:46] LABS: BASOPHILS # (AUTO) 0.03 x10^3/uL (0-0.1); BASOPHILS % (AUTO) 1 % (0-1); EOSINOPHILS # (AUTO) 0.08 x10^3/uL (0-0.4); EOSINOPHILS % (AUTO) 1 % (1-7); LYMPHOCYTES # (AUTO) 2.31 x10^3/uL (1-3.4); LYMPHOCYTES % (AUTO) 34 % (22-44); MD NO; MEAN CORPUSCULAR HEMOGLOBIN 26.7 pg (27.0-34.8); MEAN CORPUSCULAR HGB CONC 32.9 g/dL (32.4-35.8); MEAN CORPUSCULAR VOLUME 81.3 fL (80-100); MONOCYTES # (AUTO) 0.24 x10^3/uL (0.2-0.8); MONOCYTES % (AUTO) 4 % (2-9); NEUTROPHILS % (AUTO) 61 % (42-75); PLATELET COUNT 210 x10^3/uL (130-400); RED BLOOD COUNT 5.67 x10^6/uL (3.82-5.3); RED CELL DISTRIBUTION WIDTH 15.7 % (9.6-15.2)
[2019-07-30 10:48] LABS: ANION GAP 8 mmol/L (5-15); CALCIUM 9.2 mg/dL (8.5-10.1); CHLORIDE 101 mmol/L (98-107); CREATININE 0.79 mg/dL (0.55-1.02)
[2019-07-30 10:49] LABS: ALANINE AMINOTRANSFERASE 74 U/L (12-78); ALBUMIN 3.5 g/dL (3.4-5.0)
[2019-07-30 10:50] VITALS: BP 123/84
[2019-07-30 10:53] LABS: ALKALINE PHOSPHATASE 216 U/L (45-117); BILIRUBIN,TOTAL 0.6 mg/dL (0.2-1.0); TOTAL PROTEIN 7.1 g/dL (6.4-8.2); TROPONIN I < 0.015 ng/mL (0.000-0.045)
--- NOTE | 2019-07-30 11:09 | NUR ---
PT RESTING IN [facility]. PT'S AOX4. RESPS EVEN AND UNLABORED. ALL MONITORS IN PLACE. CALL LIGHT WITHIN REACH.
--- NOTE | 2019-07-30 11:26 | NUR ---
Patient given discharge instructions and they have confirmed that they understand the instructions. Patient ambulatory with steady gait.
== END 2019-07-30 11:27 | disposition home or self-care (01) ==
LOC: ED 10:41
DX: J84.10 Pulmonary fibrosis, unspecified (principal); E11.65 Type 2 diabetes mellitus with hyperglycemia; J44.9 Chronic obstructive pulmonary disease, unspecified; Z90.49 Acquired absence of other specified parts of digestive tract; Z90.710 Acquired absence of both cervix and uterus; Z87.891 Personal history of nicotine dependence; Z90.721 Acquired absence of ovaries, unilateral
CPT/HCPCS: 36600; 71046; 80053; 82803; 83880; 84484; 85025; 85379; 93005; 99284; J7512

== ENCOUNTER 2019-10-04 10:58 | Emergency (ER) | payer MEDICARE, OTHER ==
[~2019-10-04] VITALS: Ht 157.5 cm; Wt 72.0 kg
[~2019-10-04 10:58] MED LIST changes: -DOXY100T10 PO; +DOXY100T23 PO
[2019-10-04 11:02] VITALS: BP 120/78
--- NOTE | 2019-10-04 11:22 | NUR ---
Patient ambulates with steady gait to restroom to provide sample.
[2019-10-04] MEDS ORDERED: ONDANSETRON ODT 4 MG ONE (11:25)
[2019-10-04] MEDS ORDERED: PHENAZOPYRIDINE 200 MG TABLET ONE (11:25)
[2019-10-04] MEDS ORDERED: ONDANSETRON ODT 4 MG PO ONE (11:30)
[2019-10-04] MEDS ORDERED: PHENAZOPYRIDINE 200 MG TABLET PO ONE (11:30)
--- NOTE | 2019-10-04 11:31 | NUR ---
Patient expresses frustration with plan of care stating "I don't want no ct scan or nothin I've been dealing with this bladder infection for 6 months and I know my body ain't no one telling me what's wrong with my body." Patient notified that she had lab work and urinalysis ordered but no CT scan and patient states "those doctors always tell me different things the first one said I needed a CT scan and now you guys aren't doing anything, I knew I shouldn't have come to the hospital. I'm just going to leave here and get pain meds". Plan of care discussed again, attempt to deescalate patient without success. Call nevarez within reach.
[2019-10-04 11:37] LABS: BASOPHILS # (AUTO) 0.02 x10^3/uL (0-0.1); BASOPHILS % (AUTO) 0 % (0-1); EOSINOPHILS # (AUTO) 0.03 x10^3/uL (0-0.4); EOSINOPHILS % (AUTO) 1 % (1-7); LYMPHOCYTES # (AUTO) 1.03 x10^3/uL (1-3.4); LYMPHOCYTES % (AUTO) 15 % (22-44); MD NO; MEAN CORPUSCULAR HEMOGLOBIN 26.4 pg (27.0-34.8); MEAN CORPUSCULAR HGB CONC 32.7 g/dL (32.4-35.8); MEAN CORPUSCULAR VOLUME 80.8 fL (80-100); MEAN PLATELET VOLUME 7.7 fL (7.4-10.4); MONOCYTES # (AUTO) 0.14 x10^3/uL (0.2-0.8); MONOCYTES % (AUTO) 2 % (2-9); NEUTROPHILS % (AUTO) 82 % (42-75); PLATELET COUNT 226 x10^3/uL (130-400); RED BLOOD COUNT 6.11 x10^6/uL (3.82-5.3); RED CELL DISTRIBUTION WIDTH 14.1 % (9.6-15.2)
--- NOTE | 2019-10-04 11:40 | NUR ---
Patient not in room, gown on bed, monitoring equipment removed. Per registration patient asked to leave, eloped.
[2019-10-04 11:42] LABS: MICROSCOPIC AUTO
[2019-10-04 11:44] LABS: CULTURE INDICATED? YES
[2019-10-04 11:45] LABS: ALBUMIN 4.2 g/dL (3.4-5.0); ANION GAP 7 mmol/L (5-15); CALCIUM 8.9 mg/dL (8.5-10.1); CHLORIDE 104 mmol/L (98-107); CREATININE 0.71 mg/dL (0.55-1.02)
== END 2019-10-04 11:43 | disposition left against medical advice (07) ==
LOC: ED 11:16
DX: R10.31 Right lower quadrant pain (principal); J44.9 Chronic obstructive pulmonary disease, unspecified; E11.65 Type 2 diabetes mellitus with hyperglycemia; Z90.49 Acquired absence of other specified parts of digestive tract; Z90.710 Acquired absence of both cervix and uterus; Z90.722 Acquired absence of ovaries, bilateral
CPT/HCPCS: 36415; 80048; 81001; 82040; 85025; 87077; 87086; 87186; 99283; Q0162

== ENCOUNTER 2019-10-17 12:05 | Emergency (ER) | payer MEDICARE, OTHER ==
[~2019-10-17] VITALS: Ht 157.5 cm; Wt 72.0 kg
[2019-10-17 12:08] VITALS: BP 154/86
[2019-10-17] MEDS ORDERED: ACETAMINOPHEN 500 MG TABLET PO ONE (12:30)
[2019-10-17] MEDS ORDERED: ACETAMINOPHEN 500 MG TABLET ONE (12:40)
== END 2019-10-17 13:28 | disposition home or self-care (01) ==
LOC: ED 13:01
DX: S50.11XA Contusion of right forearm, initial encounter (principal); E11.9 Type 2 diabetes mellitus without complications; J44.9 Chronic obstructive pulmonary disease, unspecified; Z87.891 Personal history of nicotine dependence; W23.1XXA Caught, crushed, jammed, or pinched between stationary objects, initial encounter; Y93.89 Activity, other specified; Y92.009 Unspecified place in unspecified non-institutional (private) residence as the place of occurrence of the external cause; Y99.8 Other external cause status
CPT/HCPCS: 99283

== ENCOUNTER 2019-12-14 10:25 | Emergency (ER) | payer MEDICARE ==
[~2019-12-14] VITALS: Ht 157.5 cm; Wt 70.5 kg
--- NOTE | 2019-12-14 10:46 | NUR ---
TO ED FROM HOME, AMBULATORY. GAIT STEADY. "I THINK I'M GETTING PNEUMONIA AGAIN". HX PNA/SEPSIS. COPD/RESTRICTIVE LUNG DISEASE. FEELING SICK X3 DAYS, COUGH STARTED TODAY, NONPRODUCTIVE. SORE THROAT/SNIFFLES. "I FELL LIKE I'M NOT GETTING ENOUGH AIR" 99%RA. C/O SOME PAIN IN R CHEST. "IT'S LIKE A KNIFE IN MY CHEST". 02/25. 2 LNC AT HOME AT NIGHT. LUNGS CTAB. NO COUGHING NOTED. ABD SNT. DIARRHEA LAST NIGHT BUT HX CELIAC, STS IS NORMAL FOR HER. FLU SHOT THIS YEAR. VSS. SR 80S. +CHILLS NO FEVERS. SAHM AT BEDSIDE FOR EVAL. PLAN LABS/XR. CALL FARAH IN REACH.
--- NOTE | 2019-12-14 11:09 | NUR ---
CXR WNL RECHECK.
[2019-12-14 11:34] VITALS: BP 116/82
== END 2019-12-14 11:36 | disposition home or self-care (01) ==
LOC: ED 11:26
DX: J01.01 Acute recurrent maxillary sinusitis (principal); J01.11 Acute recurrent frontal sinusitis; B96.89 Other specified bacterial agents as the cause of diseases classified elsewhere; E11.9 Type 2 diabetes mellitus without complications; J44.9 Chronic obstructive pulmonary disease, unspecified; Z90.49 Acquired absence of other specified parts of digestive tract; Z90.710 Acquired absence of both cervix and uterus
CPT/HCPCS: 71046; 93005; 99283

== ENCOUNTER 2020-02-01 08:07 | Outpatient (CLI) | payer MEDICARE, OTHER ==
[~2020-02-01 08:07] MED LIST changes: -ROPI0.5T2 PO; +ROPI0.5T4 PO
[2020-02-01] MEDS ORDERED: FENTANYL PF 100 MCG/2ML ONE (09:11)
[2020-02-01] MEDS ORDERED: NALOXONE 1 MG/ML, 2ML ONE (09:11)
[2020-02-01] MEDS ORDERED: FLUMAZENIL 0.1 MG/1 ML, 5ML ONE (09:11)
[2020-02-01] MEDS ORDERED: MIDAZOLAM 1 MG/ML, 5ML ONE (09:11)
== END 2020-02-01 23:59 | disposition home or self-care (01) ==
LOC: RAD 08:07 → EDSTATUS 10:00 → RAD 23:59
PROVIDERS: ATTEND Orthopaedic Surgery Adult Reconstructive Orthopaedic Surgery
DX: M22.41 Chondromalacia patellae, right knee (principal); M71.21 Synovial cyst of popliteal space [Baker], right knee; M23.91 Unspecified internal derangement of right knee; E11.9 Type 2 diabetes mellitus without complications; G47.30 Sleep apnea, unspecified; J43.9 Emphysema, unspecified; Z99.81 Dependence on supplemental oxygen
CPT/HCPCS: 73721; 99156; 99157; J2250; J3010; J2310

== ENCOUNTER 2020-02-25 11:31 | Outpatient (CLI) | payer OTHER | END 2020-02-25 23:59 | disposition home or self-care (01) | LOC: LAB 11:31 | PROVIDERS: ATTEND Psychiatry & Neurology Neurology | DX: M62.81 Muscle weakness (generalized) (principal) | CPT/HCPCS: 36415; 82550; 83519 ==

== ENCOUNTER 2020-07-14 07:01 | Outpatient (CLI) | payer MEDICARE ==
[2020-07-14] MEDS ORDERED: MIDAZOLAM 1 MG/ML, 5ML ONE (07:31)
[2020-07-14] MEDS ORDERED: NALOXONE 1 MG/ML, 2ML ONE (07:31)
[2020-07-14] MEDS ORDERED: FENTANYL PF 100 MCG/2ML ONE (07:31)
[2020-07-14] MEDS ORDERED: FLUMAZENIL 0.1 MG/1 ML, 5ML ONE (07:32)
== END 2020-07-14 23:59 | disposition home or self-care (01) ==
LOC: RAD 07:01
PROVIDERS: ATTEND Physical Medicine & Rehabilitation
DX: M51.16 Intervertebral disc disorders with radiculopathy, lumbar region (principal); M47.26 Other spondylosis with radiculopathy, lumbar region; M47.27 Other spondylosis with radiculopathy, lumbosacral region; M41.86 Other forms of scoliosis, lumbar region; M79.18 Myalgia, other site; E11.9 Type 2 diabetes mellitus without complications; Z79.82 Long term (current) use of aspirin; Z79.84 Long term (current) use of oral hypoglycemic drugs; Z79.891 Long term (current) use of opiate analgesic; Z79.899 Other long term (current) drug therapy; Z88.8 Allergy status to other drugs, medicaments and biological substances; Z91.018 Allergy to other foods; Z99.81 Dependence on supplemental oxygen
CPT/HCPCS: 72148; 99156; 99157; J2250; J3010; J2310